=== PATIENT | female | born 1990 | race Caucasian/White ===

== ENCOUNTER 2018-02-04 15:23 | Emergency (ER) | payer OTHER ==
[2018-02-04 15:37] VITALS: BP 124/85
--- NOTE | 2018-02-04 16:07 | EDM.PDOC ---
ED HPI GENERAL MEDICAL PROBLEM - General Chief Complaint: Back Pain or Injury Stated Complaint: BACK PAIN Time Seen by Provider: 02/04/18 15:39 Source of Information: Reports: Patient History Limitations: Reports: No Limitations - History of Present Illness INITIAL COMMENTS - FREE TEXT/NARRATIVE: 27-year-old female presents for evaluation and treatment of low back pain. Patient reports she is experiencing the back pain since yesterday. She did try taking ibuprofen 800 mg last night and this morning without symptom relief. Currently complains of pain to the left mid to lower back. No radiation to the legs. No fevers, chills, nausea, vomiting, dysuria or hematuria. No episodes of urinary bowel incontinence. No numbness or tingling into her legs. No history of any back problems. Patient reports that the pack pain started when she was getting into her truck. She states that movement seems to aggravate the pain. Primary care provider is Leilani Esqueda PA-C. Treatments PACKAGE WRAPPER: Reports: Other (see below) Other Treatments PACKAGE WRAPPER: motrin 800mg at 1030 Lower Back Pain Score (Numeric/FACES): 8 - Related Data Allergies Allergy/AdvReac Type Severity Reaction Status Date / Time oxycodone Allergy Nausea and Verified 02/04/18 15:33 Vomiting antibiotic Allergy Hives Uncoded 02/04/18 15:32 Home Meds: Home Meds Minocycline HCl 50 mg PO DAILY 02/04/18 [History] Naproxen 500 mg PO BID PRN #20 tablet 02/04/18 [Rx] Orphenadrine [Norflex] 100 mg PO QID PRN #20 tab.er 02/04/18 [Rx] Venlafaxine [Effexor XR] 75 mg PO DAILY 02/04/18 [History] Past Medical History - Past Health History Medical/Surgical History: Denies Medical/Surgical History Psychiatric History: Reports: Depression - Past Surgical History Musculoskeletal Surgical History: Reports: Other (See Below) Social & Family History - Family History Family Medical History: Noncontributory - Tobacco Use Smoking Status *Q: Never Smoker Second Hand Smoke Exposure: No - Caffeine Use Caffeine Use: Reports: None - Alcohol Use Days Per Week of Alcohol Use: 0 - Recreational Drug Use Recreational Drug Use: No ED ROS GENERAL - Review of Systems Review Of Systems: See Below Constitutional: Denies: Fever, Chills GI/Abdominal: Denies: Nausea, Stool Incontinence, Vomiting : Denies: Dysuria, Incontinence Musculoskeletal: Reports: Back Pain (left mid to lower back). Denies: Leg Pain Neurological: Denies: Numbness, Tingling ED EXAM,LOWER BACK PAIN/INJURY - Physical Exam Exam: See Below Exam Limited By: No Limitations General Appearance: Alert, WD/WN, Mild Distress Respiratory/Chest: No Respiratory Distress, Lungs Clear, Normal Breath Sounds Cardiovascular: Normal Peripheral Pulses, Regular Rate, Rhythm, No Murmur Back Exam: Normal Inspection, Decreased Range of Motion (unable to flex more than 80 degrees, unable to extend, unable to fully rotate), Muscle Spasm (left mid to lower back spproximately t8-l3). No: Vertebral Tenderness Extremities: Normal Inspection Neurological: Alert, Normal Mood/Affect, Normal Dorsiflexion, Normal Plantar Flexion, Normal Gait. No: Straight Leg Raise (L), Straight Leg Raise (R) Psychiatric: Normal Affect, Normal Mood Skin Exam: Warm, Dry, Normal Color Course - Vital Signs Last Recorded V/S: Last Vital Signs Temp 37.0 C 02/04/18 15:35 Pulse 87 02/04/18 15:35 Resp 16 02/04/18 15:35 BP 124/85 02/04/18 15:35 Pulse Ox 98 02/04/18 15:35 - Re-Assessments/Exams Free Text/Narrative Re-Assessment/Exam: 02/04/18 15:53 Offered an x-ray. I did educate her that given she denies any trauma to that there is likely to be any bony abnormalities. I do feel this is a muscle spasm. She declined x-ray. When she was getting into her truck she likely pulled a muscle. I do not feel that she herniated disc. I will try her on some muscle relaxers and she is instructed to follow-up with her primary care provider if not much better. Discharge instructions as documented. Departure - Departure Time of Disposition: 15:59 Disposition: Home, Self-Care 01 Condition: Fair Clinical Impression: Muscle spasm of back, Back pain - Discharge Information Prescriptions: Naproxen 500 mg PO BID PRN #20 tablet PRN Reason: Pain Orphenadrine [Norflex] 100 mg PO QID PRN #20 tab.er PRN Reason: Muscle Spasm Instructions: Muscle Cramps and Spasms, [id number], Back Pain, Adult, Easy-to -Read Referrals: Leilani Esqueda PA-C [Primary Care Provider] - Forms: ED Department Discharge, ED Return to Work/School Form Additional Instructions: Norflex 1 tab twice a day as needed for muscle spasms. This medication may make you drowsy, do not drive or operate machinery until you know how this medication will affect your. Naproxen 1 tablet twice a as needed for pain. Recommend using heat to the area for additional pain relief. You may also try topical products such as Icy hot or BenGay. Expect to have discomfort for the next few days. If your symptoms persist beyond 2 weeks follow-up with your primary care provider to be reevaluated. Note given for work. Please return to the ER if your symptoms change or worsen.
== END 2018-02-04 16:38 | disposition home or self-care (01) ==
LOC: JD.ED 15:23
DX: M62.830 Muscle spasm of back (principal); Z88.5 Allergy status to narcotic agent; Z88.1 Allergy status to other antibiotic agents; Z79.899 Other long term (current) drug therapy
CPT/HCPCS: 99283

== ENCOUNTER 2021-04-05 19:07 | Emergency (ER) | payer OTHER ==
[2021-04-05 19:42] VITALS: BP 134/82; PULSE 85
[2021-04-05] MEDS ORDERED: Diphtheria,Pertussis(Acell),Tetanus Vaccine 0.5 ML Syringe IM ONE (20:00)
--- NOTE | 2021-04-05 20:03 | EDM.PDOC ---
ED HPI GENERAL MEDICAL PROBLEM - General Chief Complaint: Upper Extremity Injury/Pain Stated Complaint: HAND INJURY Time Seen by Provider: 04/05/21 19:52 Source of Information: Reports: Patient, RN Notes Reviewed History Limitations: Reports: No Limitations - History of Present Illness INITIAL COMMENTS - FREE TEXT/NARRATIVE: Patient is a 30-year-old female who presents to the ER for evaluation of a right hand injury. Patient states she was at home, working with her horses, when the fourth kicked and struck her in her right hand. This resulted in injury to her second MCP joint, there is a small superficial abrasion over the posterior surface of the joint. Patient is still able to move her finger, but notes it is fairly painful. There is some swelling about the MCP joint, with mild ecchymosis noted. She is denying any numbness or tingling distal to the injury. Patient is right-hand dominant. She is not sure of her last Tdap booster. She did not take anything for pain management prior to coming to the ER. She does present with ice pack to the area. Patient denies any other sick-like symptoms, fever/chills, cough/shortness of breath, nausea/vomiting/diarrhea. Right Hand Pain Score (Numeric/FACES): 6 - Related Data Allergies Allergy/AdvReac Type Severity Reaction Status Date / Time oxycodone AdvReac Severe Nausea and Verified 04/05/21 19:42 Vomiting Home Meds: Home Meds Hydrocodone/Acetaminophen [Hydrocodone-Acetamin 5-325 mg] 1 each PO Q6H PRN #12 tablet 04/05/21 [Rx] Ondansetron [Zofran ODT] 4 mg PO Q8H PRN #15 tab.dis 04/05/21 [Rx] Past Medical History - Past Health History Medical/Surgical History: Denies Medical/Surgical History Psychiatric History: Reports: Depression Endocrine/Metabolic History: Reports: Obesity/BMI 30+ - Past Surgical History HEENT Surgical History: Reports: Oral Surgery Musculoskeletal Surgical History: Reports: Other (See Below) Other Musculoskeletal Surgeries/Procedures:: broken finger, broken foot Social & Family History - Family History Family Medical History: No Pertinent Family History - Tobacco Use Tobacco Use Status *Q: Never Tobacco User - Caffeine Use Caffeine Use: Reports: Soda - Recreational Drug Use Recreational Drug Use: No Review of Systems - Review of Systems Review Of Systems: Comprehensive ROS is negative, except as noted in HPI. ED EXAM, GENERAL - Physical Exam Exam: See Below Exam Limited By: No Limitations General Appearance: Alert, WD/WN, No Apparent Distress Respiratory/Chest: No Respiratory Distress, Lungs Clear, Normal Breath Sounds, No Accessory Muscle Use, Chest Non-Tender Cardiovascular: Normal Peripheral Pulses, Regular Rate, Rhythm, No Edema Peripheral Pulses: 2+: Radial (L), Radial (R) Extremities: Limited Range of Motion (of right 2nd digit, bruising/swelling to MCP joint) Neurological: Alert, Oriented, Normal Cognition, No Motor/Sensory Deficits Psychiatric: Normal Affect, Normal Mood Skin Exam: Warm, Dry, Normal Color, No Rash, Wound/Incision (Superficial abrasion to the posterior surface of the patient's second MCP joint.) Course - Vital Signs Last Recorded V/S: Last Vital Signs Temp 98.5 F 04/05/21 19:40 Pulse 85 04/05/21 19:40 Resp 16 04/05/21 19:40 BP 134/82 04/05/21 19:40 Pulse Ox 98 04/05/21 19:40 - Orders/Labs/Meds Orders: Active Orders 24 hr Category Date Time Status Vaccines to be Administered [RC] PER UNIT ROUTINE Care 04/05/21 20:01 Active Hand Comp Min 3V Rt [CR] Stat Exams 04/05/21 20:00 Taken JOSE CRUZ Bandage [Elastic Wrap] [OM.PC] Routine Oth 04/05/21 21:19 Ordered Meds: Medications Discontinued Medications Generic Name Dose Route Start Last Admin Trade Name Freq PRN Reason Stop Dose Admin Diphtheria/Tetanus/Acell Pertussis 0.5 ml 04/05/21 20:00 04/05/21 20:16 Diphtheria,Pertussis(Acell),Tetanus Vaccine 0.5 Ml Syringe IM 04/05/21 20:01 0.5 ml .ONCE ONE Administration - Re-Assessments/Exams Free Text/Narrative Re-Assessment/Exam: 04/05/21 20:03 Patient presents to the ER for her finger/hand injury, we will go ahead and get x-rays of the hand, update her tetanus booster at today's visit, will re- evaluate when images have been performed. 04/05/21 20:39 Hand x-ray has been performed, and demonstrates no acute bony injury other fracture at today's visit. We will likely discharge the patient home with general recommendations, have her ice this, use some ibuprofen and place her on work restriction for the next few days, to return to work to normal on Saturday. Official radiology read is still pending, x-rays are reviewed by myself and Dr. Bowling. 04/05/21 21:21 We will get the patient some pain medication, and have her placed on light duty for work, and follow-up with Ortho if needed in the next week or so if things are not getting much better. Departure - Departure Time of Disposition: 21:22 Disposition: Home, Self-Care 01 Condition: Good Clinical Impression: Injury of right hand including fingers Qualifiers: Encounter type: initial encounter Qualified Code(s): S69.91XA - Unspecified injury of right wrist, hand and finger(s), initial encounter - Discharge Information *PRESCRIPTION DRUG MONITORING PROGRAM REVIEWED*: No *COPY OF PRESCRIPTION DRUG MONITORING REPORT IN PATIENT DAVID: No Prescriptions: Hydrocodone/Acetaminophen [Hydrocodone-Acetamin 5-325 mg] 1 each PO Q6H PRN #12 tablet PRN Reason: Pain Ondansetron [Zofran ODT] 4 mg PO Q8H PRN #15 tab.dis PRN Reason: Nausea Instructions: Crush Injury of the Hand, [id number] Referrals: Leilani Esqueda PA-C [Primary Care Provider] - Forms: ED Department Discharge, ED Return to Work/School Form Additional Instructions: You were evaluated in the ER today for your right hand/finger injury. X-rays were done and demonstrated no acute fracture or other bony abnormalities. Please keep the abrasion on your hand, clean and dry, you may cleanse with warm soapy water as needed. You may apply topical bacitracin to the wound to promote healing. Recommend you ice the hand as much as possible, to help relieve some of the swelling that is associated with this injury. You can take 500 mg Tylenol or 600 mg ibuprofen every 6 hours as needed for further pain relief. Do not exceed 4 4000 mg Tylenol or 3200 mg ibuprofen in a 24-hour time span. You were given a prescription for a strong pain medication, hydrocodone/acetaminophen 5/325 mg, please take 1 tab every 6 hours as needed for pain not relieved by Tylenol or ibuprofen alone. Please note this medication does contain Tylenol in it, so do not take more than 4000 mg in a 24- hour time span. These medications can be addictive, so please take as few as possible to achieve adequate pain control. These meds can also be quite constipating, recommend that you increase your oral fluid intake and take a stool softener like MiraLAX while taking these medications. Do not drive while taking this medication. This medication was electronically sent to the [place] [facility] located [facility] the [facility]. Please return to the ER at any time if symptoms change or worsen. Sepsis Event Note (ED) - Evaluation Sepsis Screening Result: No Definite Risk - Focused Exam Vital Signs: Vital Signs Temp Pulse Resp BP Pulse Ox 04/05/21 19:40 98.5 F 85 16 134/82 98 - My Orders Last 24 Hours: My Active Orders 04/05/21 20:00 Hand Comp Min 3V Rt [CR] Stat 04/05/21 20:01 Vaccines to be Administered [RC] PER UNIT ROUTINE 04/05/21 21:19 JOSE CRUZ Bandage [Elastic Wrap] [OM.PC] Routine - Assessment/Plan Last 24 Hours: My Active Orders 04/05/21 20:00 Hand Comp Min 3V Rt [CR] Stat 04/05/21 20:01 Vaccines to be Administered [RC] PER UNIT ROUTINE 04/05/21 21:19 JOSE CRUZ Bandage [Elastic Wrap] [OM.PC] Routine
--- NOTE | 2021-04-06 07:38 | CR ---
Right hand: 4 views centered to the right hand were obtained. Comparison: Prior right hand study of 08/18/16. Joint spaces are maintained. No acute fracture, dislocation or other bony abnormality is appreciated. Impression: 1. No abnormality is appreciated on right hand exam. 2. No change from previous study is seen. Diagnostic code #1
== END 2021-04-05 21:52 | disposition home or self-care (01) ==
LOC: JD.ED 19:07
DX: S60.410A Abrasion of right index finger, initial encounter (principal); E66.9 Obesity, unspecified; Z68.30 Body mass index [BMI] 30.0-30.9, adult; Z23 Encounter for immunization; Z88.5 Allergy status to narcotic agent; W55.12XA Struck by horse, initial encounter; Y92.009 Unspecified place in unspecified non-institutional (private) residence as the place of occurrence of the external cause
CPT/HCPCS: 73130-26-RT; 73130-RT; 90471; 90715; 99283; 99283-25

== ENCOUNTER 2021-09-16 08:45 | Emergency (ER) | payer OTHER ==
[2021-09-16 09:02] VITALS: BP 121/81; PULSE 80
--- NOTE | 2021-09-16 09:41 | EDM.PDOC ---
ED HPI GENERAL MEDICAL PROBLEM - General Chief Complaint: Gastrointestinal Problem Stated Complaint: 10 WKS PG/DEHYDRATED/NAUSEA Time Seen by Provider: 09/16/21 09:36 - History of Present Illness INITIAL COMMENTS - FREE TEXT/NARRATIVE: 30-year-old female presents the emergency room with nausea and vomiting. Patient is a G1, P0 now at 10 weeks or so gestation with problems with nausea and vomiting. The patient has been using promethazine this has not been working very well. Her regular physician, Dr. Portillo, phoned in some Nexstiman last night however the patient has not had a chance pick this up. Patient has not had any loss of taste or smell she has an intermittent cough however. - Related Data Allergies Allergy/AdvReac Type Severity Reaction Status Date / Time oxycodone AdvReac Severe Nausea and Verified 09/16/21 08:52 Vomiting Home Meds: Home Meds Promethazine [Phenadoz] 25 mg PO DAILY 09/16/21 [History] Past Medical History - Past Health History Medical/Surgical History: Denies Medical/Surgical History DIRECTOR SEARCH History: Reports: Psychiatric History: Reports: Depression Endocrine/Metabolic History: Reports: Obesity/BMI 30+ - Past Surgical History HEENT Surgical History: Reports: Oral Surgery Musculoskeletal Surgical History: Reports: Other (See Below) Other Musculoskeletal Surgeries/Procedures:: broken finger, broken foot Social & Family History - Family History Family Medical History: No Pertinent Family History - Tobacco Use Tobacco Use Status *Q: Never Tobacco User Second Hand Smoke Exposure: No - Caffeine Use Caffeine Use: Reports: None - Recreational Drug Use Recreational Drug Use: No ED ROS GENERAL - Review of Systems Review Of Systems: See Below Constitutional: Reports: No Symptoms HEENT: Reports: No Symptoms Respiratory: Reports: Cough. Denies: Sputum Cardiovascular: Reports: No Symptoms Endocrine: Reports: No Symptoms GI/Abdominal: Reports: Nausea, Vomiting. Denies: Abdominal Pain : Reports: No Symptoms Musculoskeletal: Reports: No Symptoms Skin: Reports: No Symptoms Neurological: Reports: No Symptoms ED EXAM, GENERAL - Physical Exam Exam: See Below Exam Limited By: No Limitations General Appearance: Alert, WD/WN Head: Atraumatic, Normocephalic Neck: Normal Inspection, Supple, Non-Tender, Full Range of Motion. No: Lymphadenopathy (L), Lymphadenopathy (R) Respiratory/Chest: No Respiratory Distress, Lungs Clear, Normal Breath Sounds Cardiovascular: Regular Rate, Rhythm, No Edema, No Murmur GI/Abdominal: Normal Bowel Sounds, Soft, Non-Tender Back Exam: Normal Inspection. No: CVA Tenderness (L), CVA Tenderness (R) Extremities: No Pedal Edema Neurological: Alert, Oriented, Normal Cognition Course - Vital Signs Last Recorded V/S: Last Vital Signs Temp 36.4 C 09/16/21 08:58 Pulse 80 09/16/21 08:58 Resp 16 09/16/21 08:58 BP 121/81 09/16/21 08:58 Pulse Ox 99 09/16/21 08:58 - Orders/Labs/Meds Orders: Active Orders 24 hr Category Date Time Status CORONAVIRUS COVID-19 FIFI [MOLEC] Stat Lab 09/16/21 09:47 Ordered Labs: Laboratory Tests 09/16/21 09/16/21 09/16/21 Range/Units 10:05 10:05 11:30 WBC 9.20 (3.98-10.04) K/mm3 RBC 5.01 (3.98-5.22) M/mm3 Hgb 15.1 (11.2-15.7) gm/dl Hct 43.0 (34.1-44.9) % MCV 85.8 (79.4-94.8) fl MCH 30.1 (25.6-32.2) pg MCHC 35.1 (32.2-35.5) g/dl RDW Std Deviation 41.1 (36.4-46.3) fL Plt Count 302 (182-369) K/mm3 MPV 9.0 L (9.4-12.3) fl Neut % (Auto) 67.3 (34.0-71.1) % Lymph % (Auto) 22.7 (19.3-51.7) % [place] % (Auto) 7.7 (4.7-12.5) % Eos % (Auto) 2.1 (0.7-5.8) Baso % (Auto) 0.1 (0.1-1.2) % Neut # (Auto) 6.19 H (1.56-6.13) K/mm3 Lymph # (Auto) 2.09 (1.18-3.74) K/mm3 [place] # (Auto) 0.71 H (0.24-0.36) K/mm3 Eos # (Auto) 0.19 (0.04-0.36) K/mm3 Baso # (Auto) 0.01 (0.01-0.08) K/mm3 Sodium 138 (136-145) mEq/L Potassium 4.2 (3.5-5.1) mEq/L Chloride 102 (98-107) mEq/L Carbon Dioxide 26 (21-32) mEq/L Anion Gap 14.2 (5-15) BUN 7 (7-18) mg/dL Creatinine 0.8 (0.55-1.02) mg/dL Est Cr Clr Drug Dosing 90.41 mL/min Estimated GFR (MDRD) > 60 (>60) mL/min BUN/Creatinine Ratio 8.8 L (14-18) Glucose 82 (70-99) mg/dL Calcium 9.0 (8.5-10.1) mg/dL Total Bilirubin 0.4 (0.2-1.0) mg/dL AST 26 (15-37) U/L ALT 36 (14-59) U/L Alkaline Phosphatase 55 (46-116) U/L Total Protein 7.3 (6.4-8.2) g/dl Albumin 4.0 (3.4-5.0) g/dl Globulin 3.3 gm/dL Albumin/Globulin Ratio 1.2 (1-2) Urine Color Yellow (Yellow) Urine Appearance Cloudy H (Clear) Urine pH 8.0 (5.0-8.0) Ur Specific [place] 1.020 (1.005-1.030) Urine Protein Negative (Negative) Urine Glucose (UA) Negative (Negative) Urine Ketones 2+ H (Negative) Urine Occult Blood Negative (Negative) Urine Nitrite Negative (Negative) Urine Bilirubin Negative (Negative) Urine Urobilinogen 0.2 (0.2-1.0) Ur Leukocyte Esterase Negative (Negative) Meds: Medications Discontinued Medications Generic Name Dose Route Start Last Admin Trade Name Freq PRN Reason Stop Dose Admin Lactated Ringer's 1,000 mls @ 999 mls/hr 09/16/21 09:42 09/16/21 10:17 Ringers, Lactated IV 09/16/21 10:42 999 mls/hr .BOLUS ONE Administration Ondansetron HCl 4 mg 09/16/21 09:42 09/16/21 10:17 Ondansetron 4 Mg/2 Ml Sdv IVPUSH 09/16/21 09:43 4 mg ONETIME ONE Administration - Re-Assessments/Exams Free Text/Narrative Re-Assessment/Exam: 09/16/21 12:44 Patient is doing better after Zofran and a liter of fluid lab reviewed and really are not concerning at this point. The patient [facility] a [facility] and she will be discharged to pick this up and use as directed. Departure - Departure Time of Disposition: 12:47 Disposition: Home, Self-Care 01 Clinical Impression: Nausea/vomiting in - Discharge Information Referrals: Jocelyn Portillo MD [Primary Care Provider] - Forms: ED Department Discharge Additional Instructions: Return to the emergency room with any questions problems or worsening symptoms. As we discussed shrimp picker your medicine, the Zofran, at the [facility] that Dr. Portillo put in last evening. Use as directed. Push lots of fluids as tolerated oftentimes just taking a few ounces and repeating this every 15 minutes is easy on your system. Sepsis Event Note (ED) - Evaluation Sepsis Screening Result: No Definite Risk - Focused Exam Vital Signs: Vital Signs Temp Pulse Resp BP Pulse Ox 09/16/21 08:58 36.4 C 80 16 121/81 99 - My Orders Last 24 Hours: My Active Orders 09/16/21 09:47 CORONAVIRUS COVID-19 FIFI [MOLEC] Stat - Assessment/Plan Last 24 Hours: My Active Orders 09/16/21 09:47 CORONAVIRUS COVID-19 FIFI [MOLEC] Stat
[2021-09-16] MEDS ORDERED: Ondansetron 4 MG/2 ML SDV IVPUSH ONE (09:42)
[2021-09-16] MEDS ORDERED: Lactated Ringers 1,000 ML IV ONE (09:42)
== END 2021-09-16 13:10 | disposition home or self-care (01) ==
LOC: JD.ED 08:45
DX: O21.9 Vomiting of pregnancy, unspecified (principal); O99.211 Obesity complicating pregnancy, first trimester; E66.9 Obesity, unspecified; Z88.5 Allergy status to narcotic agent; Z3A.10 10 weeks gestation of pregnancy
CPT/HCPCS: 36415; 80053; 81003; 85025; 96374; 99284; J2405; J7120

== ENCOUNTER 2021-09-24 19:59 | Emergency (ER) | payer OTHER ==
[2021-09-24 20:30] VITALS: BP 124/76; PULSE 82
[2021-09-24] MEDS ORDERED: Sodium Chloride 0.9% 1,000 ML IV ONE (20:56)
--- NOTE | 2021-09-24 22:09 | EDM.PDOC ---
ED HPI GENERAL MEDICAL PROBLEM - General Chief Complaint: Gastrointestinal Problem Stated Complaint: VOMITING /12WEEK PREG Time Seen by Provider: 09/24/21 20:25 Source of Information: Reports: Patient History Limitations: Reports: No Limitations - History of Present Illness INITIAL COMMENTS - FREE TEXT/NARRATIVE: 10-year-old female presents the emergency department with complaints of nausea and vomiting. Patient states that she is 12 weeks . Last menstrual period 06/20/2021, EDC04/06/2022. Patient is a 1 para 0. Patient was recently seen in this emergency department on 09/16/2021 with similar complaints. She received Zofran and IV fluids while in the emergency department and symptoms resolved. Patient states she saw her [employer] TECHNICIAN this week and she was started on Protonix daily. States she has been taking Zofran at home every 4-6 hours as needed however it has not seemed to help. She states she is unable to keep any food or fluid down. States she is feeling weak and dehydrated. Denies any recent fever, chills, or diarrhea. She denies any respiratory symptoms or urinary symptoms. - Related Data Allergies Allergy/AdvReac Type Severity Reaction Status Date / Time oxycodone AdvReac Mild Nausea and Verified 09/24/21 20:28 Vomiting Home Meds: Home Meds Ondansetron [Zofran ODT] 4 mg PO ASDIRECTED PRN 09/24/21 [History] Pantoprazole [ProTONIX] 40 mg PO DAILY 09/24/21 [History] Pnv No.95/Ferrous Fum/Folic AC [ Caplet] 1 tab PO DAILY 09/24/21 [History] Past Medical History - Past Health History Medical/Surgical History: Denies Medical/Surgical History HEENT History: Reports: Impaired Vision Other HEENT History: wears eyeglasses Gastrointestinal History: Reports: Other (See Below) Other Gastrointestinal History: gas/bloating. [employer] TECHNICIAN History: Reports: Musculoskeletal History: Reports: Fracture, Other (See Below) Other Musculoskeletal History: broken finger, broken foot. Psychiatric History: Reports: Anxiety, Depression Endocrine/Metabolic History: Reports: Obesity/BMI 30+ - Infectious Disease History Infectious Disease History: Reports: Chicken Pox - Past Surgical History HEENT Surgical History: Reports: Oral Surgery Social & Family History - Family History Family Medical History: No Pertinent Family History - Tobacco Use Tobacco Use Status *Q: Never Tobacco User Second Hand Smoke Exposure: No - Caffeine Use Caffeine Use: Reports: None - Recreational Drug Use Recreational Drug Use: No ED ROS GENERAL - Review of Systems Review Of Systems: Comprehensive ROS is negative, except as noted in HPI. ED EXAM, GI/ABD - Physical Exam Exam: See Below Exam Limited By: No Limitations General Appearance: Alert, WD/WN, No Apparent Distress Ears: Normal External Exam, Hearing Grossly Normal Nose: Normal Inspection Throat/Mouth: Normal Inspection, Normal Lips, Normal Voice, No Airway Compromise Head: Atraumatic Neck: Normal Inspection, Supple Respiratory/Chest: No Respiratory Distress, Lungs Clear, Normal Breath Sounds, No Accessory Muscle Use, Chest Non-Tender Cardiovascular: Normal Peripheral Pulses, Regular Rate, Rhythm, No Edema, No Murmur GI/Abdominal Exam: Normal Bowel Sounds, Soft, Non-Tender, No Distention (Female) Exam: Deferred Rectal (Female) Exam: Deferred Back Exam: Normal Inspection Extremities: Normal Inspection Neurological: Alert, Oriented, Normal Cognition Psychiatric: Normal Affect, Normal Mood Skin Exam: Warm, Dry, Intact, Normal Color, No Rash Lymphatic: No Adenopathy Course - Vital Signs Text/Narrative:: As stated above, patient presents with nausea and vomiting associated with . Physical exam is essentially unremarkable. Patient denies any nausea at this time however she states she feels dehydrated and weak and she is requesting IV fluids. Will obtain lab studies to include a CBC, CMP and magnesium level. We will obtain a urinalysis with micro and culture if indicated. Patient will receive a liter of normal saline. Last Recorded V/S: Last Vital Signs Temp 98.1 F 09/24/21 20:20 Pulse 82 09/24/21 20:20 Resp 16 09/24/21 20:20 BP 124/76 09/24/21 20:20 Pulse Ox 100 09/24/21 20:20 - Orders/Labs/Meds Labs: Laboratory Tests 09/24/21 09/24/21 09/24/21 Range/Units 21:23 21:23 21:23 WBC 6.98 (3.98-10.04) K/mm3 RBC 4.71 (3.98-5.22) M/mm3 Hgb 14.4 (11.2-15.7) gm/dl Hct 40.9 (34.1-44.9) % MCV 86.8 (79.4-94.8) fl MCH 30.6 (25.6-32.2) pg MCHC 35.2 (32.2-35.5) g/dl RDW Std Deviation 40.8 (36.4-46.3) fL Plt Count 291 (182-369) K/mm3 MPV 8.8 L (9.4-12.3) fl Neut % (Auto) 58.7 (34.0-71.1) % Lymph % (Auto) 26.6 (19.3-51.7) % [place] % (Auto) 11.0 (4.7-12.5) % Eos % (Auto) 3.3 (0.7-5.8) Baso % (Auto) 0.1 (0.1-1.2) % Neut # (Auto) 4.09 (1.56-6.13) K/mm3 Lymph # (Auto) 1.86 (1.18-3.74) K/mm3 [place] # (Auto) 0.77 H (0.24-0.36) K/mm3 Eos # (Auto) 0.23 (0.04-0.36) K/mm3 Baso # (Auto) 0.01 (0.01-0.08) K/mm3 Sodium 135 L (136-145) mEq/L Potassium 3.3 L (3.5-5.1) mEq/L Chloride 100 (98-107) mEq/L Carbon Dioxide 28 (21-32) mEq/L Anion Gap 10.3 (5-15) BUN 8 (7-18) mg/dL Creatinine 0.8 (0.55-1.02) mg/dL Est Cr Clr Drug Dosing 90.41 mL/min Estimated GFR (MDRD) > 60 (>60) mL/min BUN/Creatinine Ratio 10.0 L (14-18) Glucose 88 (70-99) mg/dL Calcium 8.7 (8.5-10.1) mg/dL Magnesium 1.9 (1.8-2.4) mg/dL Total Bilirubin 0.3 (0.2-1.0) mg/dL AST 20 (15-37) U/L ALT 30 (14-59) U/L Alkaline Phosphatase 57 (46-116) U/L Total Protein 7.3 (6.4-8.2) g/dl Albumin 3.8 (3.4-5.0) g/dl Globulin 3.5 gm/dL Albumin/Globulin Ratio 1.1 (1-2) Urine Color Yellow (Yellow) Urine Appearance Clear (Clear) Urine pH 7.0 (5.0-8.0) Ur Specific [place] 1.020 (1.005-1.030) Urine Protein Negative (Negative) Urine Glucose (UA) Negative (Negative) Urine Ketones Negative (Negative) Urine Occult Blood Negative (Negative) Urine Nitrite Negative (Negative) Urine Bilirubin Negative (Negative) Urine Urobilinogen 0.2 (0.2-1.0) Ur Leukocyte Esterase Negative (Negative) Meds: Medications Discontinued Medications Generic Name Dose Route Start Last Admin Trade Name Freq PRN Reason Stop Dose Admin Sodium Chloride 1,000 mls @ 999 mls/hr 09/24/21 20:56 09/24/21 21:23 Normal Saline IV 09/24/21 21:56 999 mls/hr ONETIME ONE Administration Potassium Chloride 40 meq 09/24/21 22:12 Potassium Chloride 20 Meq Tab.Er PO 09/24/21 22:13 ONETIME ONE - Re-Assessments/Exams Free Text/Narrative Re-Assessment/Exam: 09/24/21 22:13 Hematology is essentially unremarkable, chemistry reveals a sodium of 135, potassium 3.3, glucose 88, magnesium 1.9 Urinalysis is completely unremarkable Patient will receive 40 of potassium p.o. x1 dose. Departure - Departure Time of Disposition: 22:15 Disposition: Home, Self-Care 01 Condition: Good Clinical Impression: Nausea/vomiting in - Discharge Information Instructions: Nausea and Vomiting, Adult, [id number] Referrals: Jocelyn Portillo MD [Primary Care Provider] - Forms: ED Department Discharge Additional Instructions: You were seen in the emergency department this evening with nausea and vomiting associated with . Lab studies were completed which were essentially unremarkable however your potassium level was slightly low. You did receive a liter of IV fluids while in the emergency department as well as the potassium tab. Try to eat foods rich in potassium such as bananas and leafy greens. Take your Zofran as described. Follow-up with your [employer] TECHNICIAN this week in the clinic. Sepsis Event Note (ED) - Evaluation Sepsis Screening Result: No Definite Risk - Focused Exam Vital Signs: Vital Signs Temp Pulse Resp BP Pulse Ox 09/24/21 20:20 98.1 F 82 16 124/76 100
[2021-09-24] MEDS ORDERED: Potassium Chloride 20 MEQ Tab.ER PO ONE (22:12)
== END 2021-09-24 22:30 | disposition home or self-care (01) ==
LOC: JD.ED 19:59
DX: O21.9 Vomiting of pregnancy, unspecified (principal); Z88.5 Allergy status to narcotic agent; Z79.899 Other long term (current) drug therapy; Z3A.12 12 weeks gestation of pregnancy
CPT/HCPCS: 36415; 80053; 81003; 83735; 85025; 96360; 99284; A9270; J7030

== ENCOUNTER 2022-03-29 02:05 | Inpatient (IN) | payer OTHER ==
[~2022-03-29 02:05] MED LIST: Bupivacaine 0.25% 10 ML SDV ONE
[2022-03-29] MEDS ORDERED: Sodium Chloride 0.9% 10 ML Syringe FLUSH PRN (02:37)
[2022-03-29] MEDS ORDERED: Acetaminophen 325 MG Tab PO PRN (02:37)
[2022-03-29] MEDS ORDERED: Nalbuphine HCl 10 MG/ 1ML Amp IVPUSH PRN (02:37)
[2022-03-29] MEDS ORDERED: Ondansetron 4 MG/2 ML SDV IVPUSH PRN (02:37)
[2022-03-29] MEDS ORDERED: Oxytocin/Lactated Ringers 10 UNIT/1,000 ML BAG IV SCH ×2 (02:45)
[2022-03-29] MEDS: Lactated Ringers 1,000 ML IV SCH ×4 (03:06→06:29)
[2022-03-29] MEDS ORDERED: ePHEDrine 50 MG/ML SDV IVPUSH PRN (03:08)
[2022-03-29] MEDS ORDERED: fentaNYL 100 MCG/2 ML SDV EPIDUR PRN (03:08)
[2022-03-29] MEDS ORDERED: diphenhydrAMINE 50 MG/ML SDV IVPUSH PRN (03:08)
[2022-03-29] MEDS ORDERED: Bupivacaine/fentaNYL/NS 100 ML Bag EPIDUR PRN (03:08)
[2022-03-29] MEDS ORDERED: Lidocaine 1% 50 ML MDV ONE (09:44)
[2022-03-29] MEDS ORDERED: Docusate Sodium 100 MG Cap PO PRN (11:00)
[2022-03-29] MEDS ORDERED: Simethicone 80 MG Tab.Chew PO PRN (11:00)
[2022-03-29] MEDS ORDERED: Benzocaine/Menthol 20%-0.5% Spray 78 GM Cannister TOP PRN (11:00)
[2022-03-29] MEDS ORDERED: Witch Hazel Medicated Pads 40/Jar TOP PRN (11:00)
[2022-03-29] MEDS ORDERED: Lidocaine 1% 50 ML MDV INJECT SCH (11:00)
[2022-03-29] MEDS: Ibuprofen 600 MG Tab PO PRN ×2 (11:52→18:13)
[2022-03-29] MEDS: Sodium Chloride 0.9% 10 ML Syringe FLUSH SCH (11:58)
[2022-03-29] MEDS: Acetaminophen 325 MG Tab PO PRN (15:43)
[2022-03-30] MEDS: Sodium Chloride 0.9% 10 ML Syringe FLUSH SCH ×2 (01:31→10:27)
[2022-03-30] MEDS: Ibuprofen 600 MG Tab PO PRN ×3 (03:32→20:52)
[2022-03-30] MEDS: Prenatal Multivitamin with Calcium/Folic Acid/Iron Tab PO SCH (10:27)
[2022-03-30] MEDS: Acetaminophen 325 MG Tab PO PRN (15:20)
[2022-03-31] MEDS: Acetaminophen 325 MG Tab PO PRN (01:08)
[2022-03-31] MEDS: Ibuprofen 600 MG Tab PO PRN (04:05)
[2022-03-31 08:35] VITALS: BP 128/85; PULSE 69
[2022-03-31] MEDS: Prenatal Multivitamin with Calcium/Folic Acid/Iron Tab PO SCH (09:53)
== END 2022-03-31 11:10 | disposition home or self-care (01) | DRG 807 ==
LOC: JD.OBCHECK 02:05 → JD.OB 02:38 → OBSVTOIN 09:32 → JD.OB 09:33
PROVIDERS: ADMIT Family Medicine; ATTEND Family Medicine
PROC: 10E0XZZ Delivery of Products of Conception, External Approach (ICD-10-PCS; principal; 2022-03-29)
PROC: 10907ZC Drainage of Amniotic Fluid, Therapeutic from Products of Conception, Via Natural or Artificial Opening (ICD-10-PCS; 2022-03-29)
PROC: 3E0R3BZ Introduction of Anesthetic Agent into Spinal Canal, Percutaneous Approach (ICD-10-PCS; 2022-03-29)
DX: O69.81X0 Labor and delivery complicated by cord around neck, without compression, not applicable or unspecified (principal); Z37.0 Single live birth; Z88.5 Allergy status to narcotic agent; Z3A.38 38 weeks gestation of pregnancy
CPT/HCPCS: 36415; 51701; 51702; 59025; 59409; 85025; 86592; A9270-GY; J2001; J2590; J3010; J3490; J7120

== ENCOUNTER 2022-08-08 18:04 | Emergency (ER) | payer OTHER ==
[2022-08-08] MEDS ORDERED: Ondansetron 4 MG/2 ML SDV ONE (19:24)
[2022-08-08] MEDS ORDERED: HYDROmorphone 1 MG/ML Syringe ONE (19:24)
[2022-08-08] MEDS ORDERED: Sodium Chloride 0.9% 1,000 ML ONE (19:25)
[2022-08-08] MEDS ORDERED: Iopamidol 612 MG/ML 100 ML Bottle IV ONE (19:35)
[2022-08-08 19:39] LABS: ESTIMATED GFR 89 mL/min (>60)
[2022-08-08] MEDS ORDERED: Ondansetron 4 MG/2 ML SDV IVPUSH ONE (19:47)
[2022-08-08] MEDS ORDERED: HYDROmorphone 1 MG/ML Syringe IV ONE (19:47)
[2022-08-08] MEDS ORDERED: Sodium Chloride 0.9% 1,000 ML IV ONE (19:49)
[2022-08-08] MEDS ORDERED: HYDROmorphone 0.5 MG/0.5 ML Syringe ONE (22:10)
[2022-08-08] MEDS ORDERED: HYDROmorphone 0.5 MG/0.5 ML Syringe IVPUSH ONE (22:47)
[2022-08-09 06:12] VITALS: BP 118/84; PULSE 64
== END 2022-08-08 22:57 | disposition home or self-care (01) ==
LOC: JD.ED 18:04
DX: K52.9 Noninfective gastroenteritis and colitis, unspecified (principal); Z88.5 Allergy status to narcotic agent
CPT/HCPCS: 36415; 74177; 76705; 80053; 81001; 85025; 86140; 87086; 96361; 96374; 96375; 96376; 99284; J1170; J2405; J7030; Q9967; 99283